=== PATIENT | male | born 1965 | race Caucasian/White ===

== ENCOUNTER 2019-01-28 11:44 | Day surgery (SDC) | payer OTHER ==
[2019-01-28] MEDS ORDERED: MIDAZOLAM 1 MG/ML 2 ML INJ ×3 (13:37→13:58)
[2019-01-28] MEDS ORDERED: FENTAnyl 50 MCG/ML VIAL ×2 (13:37)
== END 2019-01-28 16:39 | disposition home or self-care (01) ==
LOC: SDS 11:44
DX: I48.91 Unspecified atrial fibrillation (principal)
CPT/HCPCS: 92960; 93005

== ENCOUNTER 2019-03-29 10:18 | Day surgery (SDC) | payer OTHER ==
[2019-03-29] MEDS ORDERED: FENTAnyl 50 MCG/ML VIAL (12:14)
[2019-03-29] MEDS ORDERED: PROPOFOL 20 ML (12:14)
== END 2019-03-29 14:56 | disposition home or self-care (01) ==
LOC: GIL 10:18
DX: K92.1 Melena (principal); K57.30 Diverticulosis of large intestine without perforation or abscess without bleeding; K64.8 Other hemorrhoids
CPT/HCPCS: 45378